=== PATIENT | male | born 1955 | race Asian ===

== ENCOUNTER 2016-08-09 10:29 | Emergency (ER) | payer MEDICAID ==
[~2016-08-09] VITALS: Ht 167.6 cm; Wt 63.5 kg
[~2016-08-09 10:29] MED LIST: CALCIUM PO; MULTIVITAMINS1 EAC2 ORAL; NKM; OMEPRAZOLE20 M2 ORAL
[2016-08-09 11:09] VITALS: BP 184/83
[2016-08-09] MEDS ORDERED: VENTOLIN HFA18 GM INH (11:11)
[2016-08-09] MEDS ORDERED: ACETAMINOPHEN-1 EAC1 ORAL (11:11)
--- NOTE | 2016-08-09 11:16 | Emergency Room Report ---
History of Present Illness General Chief Complaint: Upper Respiratory Illness Source: Medical Record Present Illness HPI 60 YOM with 6 days of nasal congestion/rhinorrhea, ear pain, sore throat, dry cough, subjective fever and body aches. Got both flu and PNA vaccines in June. Denies chest pain, SOB, leg swelling. Not taking OTC meds. Didnt go to HD 2 days ago because "I was feeling ill." Scheduled HD tomorrow. Allergies: Coded Allergies: No Known Allergies (Unverified , 12/18/12) Patient History Past Medical History: renal disease Past Surgical History: none Pertinent Family History: none Social History: Denies: alcohol use, drug use, smoking Immunizations: UTD Reviewed Nursing Documentation: PMH: Agreed, PSxH: Agreed Nursing Documentation-PMH Hx Cardiac Problems: Yes Hx Cancer: No Hx Gastrointestinal Problems: Yes Hx Dialysis: Yes - T, TH, S Hx Neurological Problems: No Review of Systems All Other Systems: negative except mentioned in HPI Physical Exam Vital Signs Date Time Temp Pulse Resp B/P Pulse Ox O2 Delivery O2 Flow Rate FiO2 08/09/16 11:01 97.2 82 20 184/83 100 Room Air Sp02 EP Interpretation: reviewed, normal General Appearance: normal inspection, well appearing, no apparent distress, alert, GCS 15, non-toxic Head: normocephalic, atraumatic Eyes: bilateral eye EOMI, bilateral eye PERRL ENT: normal ENT inspection, hearing grossly normal, normal pharynx, no angioedema, normal voice, TMs + canals normal, uvula midline, moist mucus membranes, nasal congestion Neck: normal inspection, full range of motion, supple, no bony tend Respiratory: normal inspection, lungs clear, normal breath sounds, no rhonchi, no respiratory distress, no retraction, no accessory muscle use, no wheezing Cardiovascular #1: regular rate, rhythm, no edema Gastrointestinal: normal inspection, normal bowel sounds, non tender, soft, no guarding, no hernia Genitourinary: no CVA tenderness Musculoskeletal: normal inspection, back normal, normal range of motion, Pete' s Sign negative Neurologic: normal inspection, alert, oriented x3, responsive, route sales person III-XII nml as tested, motor strength/tone normal, speech normal Psychiatric: normal inspection, judgement/insight normal, mood/affect normal Skin: normal inspection, normal color, no rash Medical Decision Making Diagnostic Impression: Primary Impression: Upper respiratory infection Qualified Codes: J06.9 - Acute upper respiratory infection, unspecified; B97.89 - Other viral agents as the cause of diseases classified elsewhere ER Course 60YOM with URI symptoms/viral illnesss. VSS. Afebrile. No obvious source of bacterial infection in oropharynx, ears, lungs, skin, abdomen on exam Well appearing Advised supportive treatment, T#3, Albuterol for cough Out of the window for Tamiflu to be effective Advised to MAKE SURE he goes to HD tomorrow No need for additional lab testing, emergent HD today as patient with normal VS. No acute respiratory distress. Lungs CTAB on exam PMD followup DC home Understands to return for worsening symptoms Last Vital Signs Date Time Temp Pulse Resp B/P Pulse Ox O2 Delivery O2 Flow Rate FiO2 08/09/16 11:09 82 20 Room Air 08/09/16 11:09 97.2 184/83 100 Status: improved Disposition: HOME, SELF-CARE Condition: Improved Scripts Acetaminophen With Codeine (T#3) (TYLENOL #3 TAB*) Y Tab 1 TAB ORAL Q8H Y for For Pain, #20 TAB Prov: SIMONA MIJARES M.D. 08/09/16 Albuterol Sulfate (VENTOLIN HFA) 18 Gm Hfa.aer.ad 2 PUFFS INH EVERY 6 HOURS, #18 GM 0 Refills Prov: SIMONA MIJARES M.D. 08/09/16 Patient Instructions: Upper Respiratory Infection, Adult Additional Instructions: - PLEASE go to dialysis tomorrow - Use albuterol and T#3 as needed for cough, body aches - Follow up with your primary care doctor in 2-3 days SIMONA MIJARES M.D. Aug 09, 2016 11:15
[2016-08-09 11:17] VITALS: BP 184/83
== END 2016-08-09 11:30 | disposition home or self-care (01) ==
LOC: EMR 11:20
DX: J06.9 Acute upper respiratory infection, unspecified (principal); B97.89 Other viral agents as the cause of diseases classified elsewhere; N18.6 End stage renal disease; Z99.2 Dependence on renal dialysis
CPT/HCPCS: 99282

== ENCOUNTER 2016-08-11 10:43 | Emergency (ER) | payer MEDICAID ==
[~2016-08-11] VITALS: Ht 172.7 cm; Wt 63.5 kg
[~2016-08-11 10:43] MED LIST changes: +ACETAMINOPHEN-1 EAC1 ORAL; +VENTOLIN HFA18 GM INH
[2016-08-11 11:00] VITALS: BP 161/72
[2016-08-11] MEDS ORDERED: Famotidine 20 MG/ 2ML VIAL IVP ONE (11:15)
--- NOTE | 2016-08-11 11:55 | Diagnostic Imaging Report ---
Indication: Abdominal pain Comparison: None Single view of the abdomen obtained Suggestion of bilateral flank masses. Correlating with recent ultrasound findings are due to enlarged kidneys from autosomal dominant polycystic kidney disease. Bowel gas pattern is nonspecific. The bones are unremarkable. Impression: Autosomal dominant polycystic kidney disease
[2016-08-11 12:00] VITALS: BP 185/70
[2016-08-11 12:05] LABS: MEAN CORPUSCULAR HEMOGLOBIN 31.1 PG (27.0-31.0); MEAN CORPUSCULAR HGB CONC 33.1 G/DL (32.0-36.0); MEAN CORPUSCULAR VOLUME 94 FL (80-99); MEAN PLATELET VOLUME 6.7 FL (6.5-10.1); PLATELET COUNT 249 K/UL (150-450); RED BLOOD COUNT 4.21 M/UL (4.70-6.10); RED CELL DISTRIBUTION WIDTH 11.6 % (11.6-14.8); WHITE BLOOD COUNT 10.3 K/UL (4.8-10.8)
[2016-08-11 12:07] LABS: ALBUMIN/GLOBULIN RATIO 1.2 (1.0-2.7); CALCIUM 8.9 mg/dL (8.6-10.2); CREATININE 10.3 mg/dL (0.7-1.2); GLOMERULAR FILTRATION RATE 5.2 mL/min (>60); POTASSIUM 4.1 mEQ/L (3.4-4.9)
[2016-08-11 12:09] LABS: TROPONIN I < 0.30 ng/mL (<=0.30)
[2016-08-11 12:18] LABS: CKMB 2.6 ng/mL (< 6.7)
[2016-08-11 12:23] LABS: BAND NEUTROPHILS % (MANUAL) 5 % (0-8); LYMPHOCYTES % (MANUAL) 7 % (20-45); NEUTROPHILS % (MANUAL) 84 % (45-75); TOTAL CELLS COUNTED 100
[2016-08-11 12:24] LABS: BASOPHILS % (MANUAL) 0 % (0-2); EOSINOPHILS % (MANUAL) 0 % (0-3); PLATELET ESTIMATE ADEQUATE; PLATELET MORPHOLOGY NORMAL
[2016-08-11 13:02] VITALS: BP 161/72
[2016-08-11] MEDS ORDERED: BP pill (13:08)
--- NOTE | 2016-08-11 13:44 | Diagnostic Imaging Report ---
Indication: Abdominal pain Technique: Continuous helical transaxial imaging of the abdomen and pelvis was obtained from the lung bases to the pubic symphysis during intravenous contrast administration. Coronal 2-D reformats were also obtained. Study obtained in a Siemens sensation [address] Total Dose length Product (DLP): [address] Dose Index Volume (CTDIvol): Or change mGy Comparison: 12/21/12 Findings: Some linear densities noted at the lung bases likely scarring or atelectasis. There is a calcification noted at the right lung base. There are innumerable cysts present within the liver and replacing the parenchyma of the kidneys which are massively enlarged. The findings are pathognomonic for autosomal dominant polycystic kidney disease. Findings overall appear grossly unchanged from the last study. Intravenous contrast was given. There is no evidence of an enhancing solid mass within either kidney. A minor subgroup... appear iso-attenuated tube slightly hyperattenuated and this may be on the basis of a protein or hemorrhage within the cyst. There is no ascites. There is no bowel dilatation or evidence of obstruction. Some mural consultation noted within the aorta. Gallbladder is seen and grossly unremarkable. Spleen and pancreas are unremarkable. Impression: Autosomal dominant polycystic kidney disease as discussed above. Innumerable liver cysts also noted. Mild atherosclerotic vascular disease Basilar scarring and/or atelectasis. The CT scanner at [facility] is accredited by the [employer] and the scans are performed using protocols designed to limit radiation exposure to as low as reasonably achievable to attain images of sufficient resolution adequate for diagnostic evaluation.
[2016-08-11 13:46] VITALS: BP 177/67
[2016-08-11] MEDS ORDERED: SORBITOL 70%30 ML PO (13:59)
[2016-08-11 14:11] VITALS: BP 172/84
--- NOTE | 2016-08-12 14:30 | Emergency Room Report ---
History of Present Illness General Chief Complaint: Abdominal Pain Source: Patient Present Illness HPI 60-year-old male presents ED complaining of abdominal pain. States symptoms have persisted for 4 days. Unable to have bowel movement x4 days. Pain is sharp, 9/10, nonradiating. No aggravating or relieving factors. Notes nausea and vomiting. Denies fevers or chills. Denies chest pain shortness of breath. Patient states he is a dialysis patient receives dialysis Tuesday, , . PMD is Dr. Kessler. Denies any other associated symptoms Allergies: Coded Allergies: No Known Allergies (Unverified , 12/18/12) Patient History Past Medical History: HTN, renal disease, dialysis Past Surgical History: none Pertinent Family History: none Social History: Denies: alcohol use, drug use, smoking Immunizations: UTD Reviewed Nursing Documentation: PMH: Agreed, PSxH: Agreed Nursing Documentation-PMH Hx Cardiac Problems: Yes Hx Hypertension: Yes Hx Cancer: No Hx Gastrointestinal Problems: Yes Hx Dialysis: Yes - T, , S Hx Neurological Problems: No Review of Systems All Other Systems: negative except mentioned in HPI Physical Exam Vital Signs Date Time Temp Pulse Resp B/P Pulse Ox O2 Delivery O2 Flow Rate FiO2 08/11/16 10:50 98.8 82 16 166/89 100 Room Air Sp02 EP Interpretation: reviewed, normal General Appearance: no apparent distress, alert, GCS 15, non-toxic Head: normocephalic Eyes: bilateral eye PERRL, bilateral eye normal inspection ENT: normal ENT inspection Neck: normal inspection Respiratory: chest non-tender, lungs clear, normal breath sounds, speaking full sentences Cardiovascular #1: regular rate, rhythm, no edema Gastrointestinal: normal bowel sounds, soft, non-distended, no guarding, no rebound, tenderness Rectal: deferred Genitourinary: no CVA tenderness Musculoskeletal: normal inspection Neurologic: alert, oriented x3, responsive, motor strength/tone normal, sensory intact, speech normal Psychiatric: normal inspection Skin: normal inspection Lymphatic: normal inspection Medical Decision Making Diagnostic Impression: Primary Impression: Constipation Qualified Codes: K59.00 - Constipation, unspecified Additional Impression: ESRD (end stage renal disease) on dialysis ER Course Hospital Course 60-year-old M presents to ED with abdominal pain, vomiting. no BM x 4 days Differential diagnosis includes-appendicitis, cholecystitis, small bowel obstruction, gastritis, Clinical course Patient placed on stretcher. After initial history and physical I ordered labs , KUB Labs - no leukocytosis, BUN/Cr elevated, K ok, LFTs normal, UA unremarkable KUB -nonspecific CT shows no acute process Given improvement in symptoms and lack of acute findings, I believe patient can be safely discharged to home. Patient agrees with plan. Discussed case with PMD Dr Kessler and he agrees I feel this is a highly complex case requiring extensive working including EKG/ Rhythm strip, Xray/CT/US, Blood/urine lab work, repeat exams while in ED, and administration of strong opiates/narcotics for pain control, admission to hospital or close patient follow up. Diagnosis - constipation, ESRD on dialysis Stable and discharged to home with Rx sorbitol. instructed on high-fiber diet. Followup with PMD. Return to ED if symptoms recur or worsen Labs Test 08/11/16 11:18 White Blood Count 10.3 K/UL (4.8-10.8) Red Blood Count 4.21 M/UL (4.70-6.10) Hemoglobin 13.1 G/DL (14.2-18.0) Hematocrit 39.6 % (42.0-52.0) Mean Corpuscular Volume 94 FL (80-99) Mean Corpuscular Hemoglobin 31.1 PG (27.0-31.0) Mean Corpuscular Hemoglobin Concent 33.1 G/DL (32.0-36.0) Red Cell Distribution Width 11.6 % (11.6-14.8) Platelet Count 249 K/UL (150-450) Mean Platelet Volume 6.7 FL (6.5-10.1) Neutrophils (%) (Auto) % (45.0-75.0) Lymphocytes (%) (Auto) % (20.0-45.0) Monocytes (%) (Auto) % (1.0-10.0) Eosinophils (%) (Auto) % (0.0-3.0) Basophils (%) (Auto) % (0.0-2.0) Differential Total Cells Counted 100 Neutrophils % (Manual) 84 % (45-75) Lymphocytes % (Manual) 7 % (20-45) Monocytes % (Manual) 4 % (1-10) Eosinophils % (Manual) 0 % (0-3) Basophils % (Manual) 0 % (0-2) Band Neutrophils 5 % (0-8) Platelet Estimate Adequate Platelet Morphology Normal Red Blood Cell Morphology Normal Sodium Level 134 mEQ/L (135-145) Potassium Level 4.1 mEQ/L (3.4-4.9) Chloride Level 86 mEQ/L (98-107) Carbon Dioxide Level 28 mEQ/L (20-30) Anion Gap 20 (5-15) Blood Urea Nitrogen 58 mg/dL (7-23) Creatinine 10.3 mg/dL (0.7-1.2) Estimat Glomerular Filtration Rate 5.2 mL/min (>60) Glucose Level 94 mg/dL (74-106) Calcium Level 8.9 mg/dL (8.6-10.2) Total Bilirubin 0.6 mg/dL (0.0-1.2) Aspartate Amino Transf (AST/SGOT) 8 U/L (5-40) Alanine Aminotransferase (ALT/SGPT) 8 U/L (3-41) Alkaline Phosphatase 46 U/L (40-129) Total Creatine Kinase 98 U/L (38-174) Creatine Kinase MB 2.6 ng/mL (< 6.7) Creatine Kinase MB Relative Index 2.6 Troponin I < 0.30 ng/mL (<=0.30) Total Protein 7.0 g/dL (6.6-8.7) Albumin 3.9 g/dL (3.5-5.2) Globulin 3.1 g/dL Albumin/Globulin Ratio 1.2 (1.0-2.7) Lipase 41 U/L (< 60) Other X-Ray Diagnostic Results Other X-Ray Diagnostic Results : X-Ray Ordered: KUB EP Interpretation: No Findings: no fractures, no dislocation, no soft tissue swelling Number of Views: 1 CT/MRI/US Diagnostic Results CT/MRI/US Diagnostic Results : Imaging Test Ordered: CT A/P Impression no acute process Last Vital Signs Date Time Temp Pulse Resp B/P Pulse Ox O2 Delivery O2 Flow Rate FiO2 08/11/16 14:11 72 14 172/84 100 Room Air 08/11/16 13:46 98.1 Status: improved Disposition: HOME, SELF-CARE Condition: Stable Scripts Sorbitol (Sorbitol) 30 Ml Solution 30 ML PO TID for 7 Days, ML Prov: SOURAV ARELLANO M.D. 08/11/16 Patient Instructions: Constipation, Adult, [id number] SOURAV ARELLANO M.D. Aug 12, 2016 14:30
== END 2016-08-11 14:15 | disposition home or self-care (01) ==
LOC: EMR 11:22
DX: K59.00 Constipation, unspecified (principal); I12.0 Hypertensive chronic kidney disease with stage 5 chronic kidney disease or end stage renal disease; N18.6 End stage renal disease; Z99.2 Dependence on renal dialysis; Q61.3 Polycystic kidney, unspecified; K76.89 Other specified diseases of liver
CPT/HCPCS: 36415; 74000; 74177; 80053; 82550; 82553; 83690; 84484; 85007; 85025; 96374; 96375; 99284; J2405; Q9967; S0028